=== PATIENT | female | born 2000 | race Caucasian/White ===

== ENCOUNTER 2021-11-17 18:10 | Emergency (ER) | payer MEDICAID ==
[~2021-11-17] VITALS: Ht 165.1 cm; Wt 90.3 kg
[2021-11-17 18:24] VITALS: BP 129/67
--- NOTE | 2021-11-17 22:19 | NUR ---
PT LWBS PER PHYSICIAN, PT CALLED MULTIPLE TIMES WITHOUT ANSWER
== END 2021-11-17 22:19 | disposition left against medical advice (07) ==
LOC: MED 18:10
DX: K92.1 Melena (principal); R10.30 Lower abdominal pain, unspecified; R30.9 Painful micturition, unspecified; Z53.21 Procedure and treatment not carried out due to patient leaving prior to being seen by health care provider
CPT/HCPCS: 81002; 81025